=== PATIENT | female | born 1980 | race Two or more races ===

== ENCOUNTER 2018-03-06 16:41 | Outpatient (CLI) | payer OTHER ==
[~2018-03-06] VITALS: Ht 162.6 cm; Wt 136.0 kg
[2018-03-06] MEDS ORDERED: SYNTHROID50 MCG PO (21:38)
[2018-03-06] MEDS ORDERED: ZYRTEC10 M3 PO (21:40)
[2018-03-06] MEDS ORDERED: FLONASE16 GM NASAL (21:40)
[2018-03-06] MEDS ORDERED: ZANTAC150 M3 PO (21:42)
[2018-03-06] MEDS ORDERED: TUMS X-STR300 MG PO (21:43)
[2018-03-06] MEDS ORDERED: ATABEX DHA 200200 MG PO (21:43)
== END 2018-03-06 16:50 | disposition still patient (30) ==
LOC: NST 16:41 → LDR 18:05 → NST 18:05 → LDR 18:58
DX: Z34.83 Encounter for supervision of other normal pregnancy, third trimester (principal)

== ENCOUNTER 2018-03-06 18:31 | Inpatient (IN) | payer OTHER ==
[~2018-03-06] VITALS: Ht 152.4 cm; Wt 59.0 kg
[2018-03-06] MEDS ORDERED: SYNTHROID50 MCG PO (21:38)
[2018-03-06] MEDS ORDERED: ZYRTEC10 M3 PO (21:40)
[2018-03-06] MEDS ORDERED: FLONASE16 GM NASAL (21:40)
[2018-03-06] MEDS ORDERED: ZANTAC150 M3 PO (21:42)
[2018-03-06] MEDS ORDERED: ATABEX DHA 200200 MG PO (21:43)
[2018-03-06] MEDS ORDERED: TUMS X-STR300 MG PO (21:43)
[2018-03-08] MEDS ORDERED: PROCARDIA XL90 MG PO (08:37)
== END 2018-03-08 09:45 | DRG 780 ==
LOC: OB/GYN 18:31 → LDR 18:31 → OB/GYN 03-07 09:00
PROC: 4A1HXCZ Monitoring of Products of Conception, Cardiac Rate, External Approach (ICD-10-PCS; principal; 2018-03-06)
DX: O47.03 False labor before 37 completed weeks of gestation, third trimester (principal); O99.013 Anemia complicating pregnancy, third trimester; O09.523 Supervision of elderly multigravida, third trimester; Z3A.29 29 weeks gestation of pregnancy

== ENCOUNTER 2018-03-17 08:53 | Outpatient (CLI) | payer OTHER ==
[~2018-03-17 08:53] MED LIST: ATABEX DHA 200200 MG PO; FLONASE16 GM NASAL; PROCARDIA XL90 MG PO; SYNTHROID50 MCG PO; TUMS X-STR300 MG PO; ZANTAC150 M3 PO; ZYRTEC10 M3 PO
== END 2018-03-17 09:58 | disposition home or self-care (01) ==
LOC: NST 08:53
DX: Z34.83 Encounter for supervision of other normal pregnancy, third trimester (principal)

== ENCOUNTER 2018-03-21 15:06 | Outpatient (CLI) | payer OTHER | END 2018-03-21 17:15 | disposition home or self-care (01) | LOC: NST 15:06 | DX: Z34.83 Encounter for supervision of other normal pregnancy, third trimester (principal) ==

== ENCOUNTER 2018-03-22 13:45 | Outpatient (CLI) | payer OTHER | END 2018-03-22 22:48 | disposition home or self-care (01) | LOC: NST 13:45 | DX: O48.1 Prolonged pregnancy (principal); Z34.83 Encounter for supervision of other normal pregnancy, third trimester ==

== ENCOUNTER 2018-03-29 11:26 | Outpatient (CLI) | payer OTHER | END 2018-03-29 12:34 | disposition home or self-care (01) | LOC: NST 11:26 | DX: Z34.83 Encounter for supervision of other normal pregnancy, third trimester (principal) ==

== ENCOUNTER 2018-04-05 18:04 | Inpatient (IN) | payer OTHER ==
[~2018-04-05] VITALS: Ht 152.4 cm; Wt 59.9 kg
[2018-04-05] MEDS ORDERED: OBSTETRIX EC C1 EACH PO (18:45)
== END 2018-04-07 22:01 | disposition designated cancer center or children's hospital (05) | DRG 780 ==
LOC: LDR 18:04 → OB/GYN 04-07 08:22 → LDR 04-07 22:01
PROC: 4A1HXCZ Monitoring of Products of Conception, Cardiac Rate, External Approach (ICD-10-PCS; principal; 2018-04-05)
DX: O47.03 False labor before 37 completed weeks of gestation, third trimester (principal); R10.2 Pelvic and perineal pain